=== PATIENT | female | born 1980 | race Caucasian/White ===

== ENCOUNTER 2016-09-15 17:19 | Emergency (ER) | payer SELFPAY ==
[2016-09-15 17:33] VITALS: BP 134/75
--- NOTE | 2016-09-15 17:40 | EDM.PDOC ---
[id number] Time Seen by Provider: 09/15/16 17:39 Source of Information: Reports: Patient History Limitations: Reports: No limitations - History of Present Illness INITIAL COMMENTS - FREE TEXT/NARRATIVE: patient complains of progressively worsening left ear pain. No fever noted. Painless swallowing and jaw movement. No rash noted. No headache. Denies decreased hearing acuity Timing/Duration: Reports: Day(s): Severity: moderate Location: Reports: left Ear Quality: Reports: Ache, Sharp, Throbbing Improves with: Reports: None Worsens with: Reports: Eating Associated Symptoms: Reports: no other symptoms Treatments PRACTICE NURSE: Reports: Acetaminophen, NSAIDS - Related Data Allergies/ADRs: Allergies Allergy/AdvReac Type Severity Reaction Status Date / Time No Known Allergies Allergy Verified 09/15/16 17:30 Home Meds: Home Meds . [No Known Home Meds] 06/05/16 [History] Past Medical History - Past Health History Medical/Surgical History: Denies Medical/Surgical History Psychiatric History: Reports: Anxiety, Depression Endocrine/Metabolic History: Reports: Obesity/BMI 30+ Social & Family History - Family History Family Medical History: Noncontributory - Tobacco Use Smoking Status *Q: Current Every Day Smoker Years of Tobacco use: 20 Packs/Tins Daily: 1 Used Tobacco, but Quit: No Second Hand Smoke Exposure: No - Recreational Drug Use Recreational Drug Use: No - Living Situation & Occupation Living situation: Reports: with family ED ROS ENT - Review of Systems Review Of Systems: See Below Constitutional: Reports: no symptoms HEENT: Reports: Ear pain. Denies: Sinus problem, Throat pain Respiratory: Reports: No Symptoms Cardiovascular: Reports: No symptoms Endocrine: Reports: no symptoms GI/Abdominal: Reports: No symptoms Musculoskeletal: Reports: no symptoms Neurological: Reports: No Symptoms ED EXAM, ENT - Physical Exam Exam: See Below Exam Limited By: No limitations General Appearance: alert, WD/WN, no apparent distress Ears: other (left ear exam tender to the touch but seems out of proportion for the exam. Obvious erythema. The auditory canal appears normal. Best I can visualize the tympanic membrane appears normal. Patient flinches when palpating the mastoid or anywhere near the auditory canal. Complains of pain to palpation of the temporomandibular joint) Nose: normal inspection Mouth/Throat: Normal inspection, Normal gums, Normal oropharynx Course - Vital Signs Last Recorded V/S: Last Vital Signs Temp 97.6 F 09/15/16 17:31 Pulse 96 09/15/16 17:31 Resp 16 09/15/16 17:31 BP 134/75 09/15/16 17:31 Pulse Ox 100 09/15/16 17:31 Departure - Departure Time of Disposition: 17:46 Disposition: Home, Self-Care 01 Condition: good Clinical Impression: Otalgia of left ear Forms: ED Department Discharge, Return to Work/School Form Additional Instructions: no work today or tomorrow. May resume work on Sunday. Take medications as directed. Follow up with her regular provider in one to 2 weeks if needed. Call or return if any problems questions or concerns.
== END 2016-09-15 18:08 | disposition home or self-care (01) ==
LOC: DL.ED 17:19
DX: H92.02 Otalgia, left ear (principal); F17.210 Nicotine dependence, cigarettes, uncomplicated; F32.9 Major depressive disorder, single episode, unspecified; F41.9 Anxiety disorder, unspecified; E66.9 Obesity, unspecified; Z68.41 Body mass index [BMI] 40.0-44.9, adult
CPT/HCPCS: 99282